=== PATIENT | male | born 1945 | race Caucasian/White ===

== ENCOUNTER → 2016-10-15 | Outpatient (CLI) | payer BC ==
[~2016-10-15] MED LIST: AMLO-110 PO; ANDG TOP; ASPCH81X PO; ATOR10TA82 PO; FOLI-29 PO
[2016-10-15 13:09] LABS: BASO % 0.5 %; BASO ABS # 0.03 K/uL (0-0.2); COMPLETE YES; HEMATOCRIT 52.3 % (42-52); IG% 0.2 %; LYMPH % 23.6 %; LYMPH ABS # 1.43 K/uL (1.2-3.4); MEAN CELL VOLUME 88.9 fL (80-100); MEAN CORPUSCULAR HEMOGLOBIN 29.6 pg (25-34); MEAN CORPUSCULAR HGB CONC 33.3 g/dl (32-36); MEAN PLATELET VOLUME 12.1 fL (7.4-10.4); MONO % 9.8 %; NEUT % 63.9 %; PLATELET COUNT 136 K/uL (130-400); RED BLOOD COUNT 5.88 M/uL (4.7-6.1); WHITE BLOOD COUNT 6.05 K/uL (4.8-10.8)
[2016-10-15 14:33] LABS: BLOOD UREA NITROGEN 13 mg/dl (7-18); BUN/CREATININE RATIO 13.1 (10-20); CALCIUM 9.1 mg/dl (8.5-10.1); CARBON DIOXIDE 24 mmol/L (21-32); CHLORIDE 110 mmol/L (98-107); CREATININE 0.99 mg/dl (0.60-1.40); GLUCOSE 97 mg/dl (70-99); POTASSIUM 4.1 mmol/L (3.5-5.1); SODIUM 142 mmol/L (136-145)
[2016-10-15 14:36] LABS: CHOLESTEROL 134 mg/dl (0-200); CHOLESTEROL/HDL RATIO 3.7; HDL CHOLESTEROL 36 mg/dl; LDL CHOLESTEROL CALCULATED 67 mg/dl; TRIGLYCERIDES 153 mg/dl (0-150); VERY LOW DENSITY LIPOPROT CALC 31 mg/dl
[2016-10-18 18:16] LABS: LIVER FIBR APOLIPOPROTEIN A-1 118 mg/dL (94-176); LIVER FIBROS ALPHA-2-MACROGLOB 175 mg/dL (106-279); LIVER FIBROSIS GGT 25 U/L (3-70); NECROINFLAMMATION ACT GRADE A0; NECROINFLAMMATION ACT SCORE 0.05
== END | disposition home or self-care (01) ==
LOC: C.LABMFLN 10:17
PROVIDERS: ATTEND Family Medicine
DX: I10 Essential (primary) hypertension (principal); E29.1 Testicular hypofunction; E78.00 Pure hypercholesterolemia, unspecified; E72.11 Homocystinuria

== ENCOUNTER → 2016-10-22 | Outpatient (CLI) | payer BC ==
--- NOTE | 2016-10-22 11:13 | DIAGNOSTIC IMAGING REPORT ---
LUMBAR SPINE 5 VIEWS HISTORY: M54.17 Lumbosacral radiculopathy at [id number] COMPARISON: None. FINDINGS: There is no fracture. No subluxation. The sacrum is intact. Mild facet degenerative changes within the lower lumbar spine. Mild disc space narrowing at L3-L4. There is also mild degenerative disc disease within the lower thoracic spine. IMPRESSION: No fracture or subluxation within the lumbar spine. Mild degenerative changes as described above. Electronically signed by: Eliot Bradley M.D. 10/22/2016 11:11 AM Dictated Date/Time: 10/22/2016 11:05 AM
== END | disposition home or self-care (01) ==
LOC: C.RAD 10:46
PROVIDERS: ATTEND Family Medicine
DX: M54.17 Radiculopathy, lumbosacral region (principal)

== ENCOUNTER → 2016-12-05 | Day surgery (SDC) | payer BC, OTHER ==
[2016-11-21 10:40] VITALS: Ht 168.9 cm; Wt 67.3 kg
[~2016-12-05] VITALS: Ht 168.9 cm; Wt 67.3 kg
[~2016-12-05] MED LIST changes: +LIDOCAINE HCL 2% 2 ML VIAL (20MG/ML) ONE; +PROPOFOL IV EMULSION 10 MG/ML 20 ML VIAL IV ONE; +SODIUM CHLORIDE 0.9% 500ML 500 ML IV ONE
[2016-12-05 12:16] VITALS: TEMP 36.4
--- NOTE | 2016-12-05 12:28 | Endo History and Physical ---
History & Physical Date of Service: Dec 05, 2016. Chief Complaint: Screening Referring Physician: Guprreet Cherry History of Present Illness 71 yo CM who presents for screening colonoscopy. Past Surgical History Hx Cardiac Surgery: No Hx Internal Defibrillator: No Hx Pacemaker: No Hx Abdominal Surgery: No Hx of Implantable Prosthesis: No Hx Post-Op Nausea and Vomiting: No Hx Cancer Surgery: No Hx Thoracic Surgery: No Hx Orthopedic: Yes (LEFT RCR, LEFT WRIST FX REPAIR) Hx Urinary Tract Surgery: No Family History None Social History Smoking Status: Former Smoker Hx Substance Use: No Hx Alcohol Use: Yes ("VERY LITTLE") Allergies Coded Allergies: NO KNOWN DRUG ALLERGIES (Verified Allergy, Unknown, ., 12/05/16) Current Medications Reported Home Medications Medications Dose Route/Sig Max Daily Dose Days Date Category Androgel (Testosterone) 5 Gm Gel 1 Pkt TOP DAILY 30 11/21/16 Reported Folgard (Folic Acid-Vit B2-Vit B6-Vit B) 1 Tab Tab 1 Tab PO QAM 11/21/16 Reported Norvasc (Amlodipine Besylate) 5 Mg Tab 5 Mg PO QAM 11/21/16 Reported Aspirin Chewable (Aspirin) 81 Mg Chew 81 Mg PO HS 11/21/16 Reported Lipitor (Atorvastatin Calcium) 10 Mg Tab 10 Mg PO HS 11/21/16 Reported Vital Signs Weight (Kilograms): 67.27 Height (Feet): 5 Height (Inches): 6.5 Date Time Temp Pulse Resp B/P (MAP) Pulse Ox O2 Delivery O2 Flow Rate FiO2 12/05/16 12:16 36.4 64 18 170/91 (117) 99 Room Air Physical Exam General Appearance: WD/WN, no apparent distress Respiratory/Chest: Auscultation: breath sounds normal Cardiovascular: Heart Auscultation: RRR Abdomen: Bowel Sounds: normal Inspection & Palpation: soft, non-distended, no tenderness, guarding & rebound Assessment and Plan Assessment: 71 yo CM who presents for screening colonoscopy. Plan: Proceed with colonoscopy.
--- NOTE | 2016-12-05 12:42 | Discharge Instructions ---
Endoscopy Patient Instructions Date / Procedure(s) Performed Dec 05, 2016. Colonoscopy Allergy Information Coded Allergies: NO KNOWN DRUG ALLERGIES (Verified Allergy, Unknown, ., 12/05/16) Discharge Date / Findings Dec 05, 2016. Internal hemorrhoids Medication Instructions Stopped Medication(s): Aspirin stopped 12/03/16 OK to resume all medications today as prescribed Medications Dose Route/Sig Max Daily Dose Days Date Category Androgel (Testosterone) 5 Gm Gel 1 Pkt TOP DAILY 30 11/21/16 Reported Folgard (Folic Acid-Vit B2-Vit B6-Vit B) 1 Tab Tab 1 Tab PO QAM 11/21/16 Reported Norvasc (Amlodipine Besylate) 5 Mg Tab 5 Mg PO QAM 11/21/16 Reported Aspirin Chewable (Aspirin) 81 Mg Chew 81 Mg PO HS 11/21/16 Reported Lipitor (Atorvastatin Calcium) 10 Mg Tab 10 Mg PO HS 11/21/16 Reported Provider Instructions Activity Restrictions - No exercising or heavy lifting for 24 hours. - Do not drink alcohol the day of the procedure. - Do not drive a car or operate machinery until the day after the procedure. - Do not make any important decisions or sign important papers in 24 hours after the procedure. Following Day: - Return to full activity which may include returning to work/school. Diet Start your diet with liquids and light foods (jello, soup, juice, toast). Then eat your usual diet if not nauseated. Treatment For Common After Affects For mild abdominal pain, bloating, or excessive gas: - Rest - Eat lightly - Lie on right side Follow-Up Information Follow-up with Gurpreet Cherry as scheduled Anesthesia Information What You Should Know You have had a procedure that required some medicine to reduce anxiety and discomfort. This treatment is called moderate sedation. After receiving the treatment, you may be sleepy, but you will be able to breathe on your own. The effects of the treatment may last for several hours. Follow these instructions along with Activity/Diet recommendations noted above: * Do NOT do anything where dizziness or clumsiness would be dangerous. * Rest quietly at home today, then you can be up and about tomorrow. * Have a responsible person stay with you the rest of today. * You may have had an I.V. today. If so, you may take the dressing off later today. Recommendations Call your doctor if: * Trouble breathing * Continuous vomiting for more than 24 hours * Temperature above 101 degrees * Severe abdominal pain or bloating * Pain not relieved by pain medicine ordered * There is increased drainage or redness from any incision * A large amount of rectal bleeding greater than 2-3 tablespoons. (If you had a polyp/s removed or have hemorrhoids, a small amount of blood - from the rectum is to be expected.) * You have any unanswered questions or concerns. IN THE EVENT OF A SERIOUS EMERGENCY, GO TO THE NEAREST EMERGENCY ROOM Your discharge instructions were prepared by provider Sukhdev Gross. Patient Instructions Signature Page John Brink Patient (or Guardian) Signature/Date: I have read and understand the instructions given to me by my caregivers. Caregiver/RN/Doctor Signature/Date: The above-named patient and/or guardian has received patient instructions on this date. + Original Patient Signature Page (only) stays with chart. Please make copy for patient.
--- NOTE | 2016-12-05 12:49 | GI REPORT ---
Procedure Date: 12/05/2016 12:20 PM Procedure: Colonoscopy Indications: Screening for colorectal malignant neoplasm Medicines: Monitored Anesthesia Care Complications: No immediate complications. Estimated Blood Loss: Estimated blood loss: none. Procedure: Pre-Anesthesia Assessment: - Prior to the procedure, a History and Physical was performed, and patient medications and allergies were reviewed. The patient's tolerance of previous anesthesia was also reviewed. The risks and benefits of the procedure and the sedation options and risks were discussed with the patient. All questions were answered, and informed consent was obtained. Prior Anticoagulants: The patient has taken aspirin, last dose was 2 days prior to procedure. ASA Grade Assessment: II - A patient with mild systemic disease. After reviewing the risks and benefits, the patient was deemed in satisfactory condition to undergo the procedure. After I obtained informed consent, the scope was passed under direct vision. Throughout the procedure, the patient's blood pressure, pulse, and oxygen saturations were monitored continuously. The Scope was introduced through the anus and advanced to the terminal ileum. The colonoscopy was performed without difficulty. The patient tolerated the procedure well. The quality of the bowel preparation was good. The terminal ileum, ileocecal valve, appendiceal orifice, and rectum were photographed. Findings: Non-bleeding internal hemorrhoids were found during retroflexion. The hemorrhoids were small. Impression: - Non-bleeding internal hemorrhoids. - No specimens collected. Recommendation: - Resume previous diet. - Continue present medications. - Return to primary care physician as previously scheduled. - No repeat colonoscopy due to age and the absence of advanced adenomas. Sukhdev Gross, DO 12/05/2016 12:48:46 PM This report has been signed electronically. Note Initiated On: 12/05/2016 12:20 PM I attest to the content of the Intraoperative Record and orders documented therein, exceptions below
[2016-12-05 13:01] VITALS: BP 133/93; PULSE 66; O2SAT 98
--- NOTE | 2016-12-05 14:21 | Anesthesiology Progress Note ---
Anesthesia Post Op Note Date & Time Dec 05, 2016 at 14:21 Vital Signs Pain Intensity: 0 Vital Signs Past 12 Hours Date Time Temp Pulse Resp B/P (MAP) Pulse Ox O2 Delivery O2 Flow Rate FiO2 12/05/16 13:01 66 18 133/93 (106) 98 Room Air 12/05/16 12:54 71 18 111/82 (92) 99 Room Air 12/05/16 12:43 73 18 126/72 (90) 99 Room Air 12/05/16 12:16 36.4 64 18 170/91 (117) 99 Room Air Notes Mental Status: alert / awake / arousable, participated in evaluation Pt Amnestic to Procedure: Yes Nausea / Vomiting: adequately controlled Pain: adequately controlled Airway Patency, RR, SpO2: stable & adequate BP & HR: stable & adequate Hydration State: stable & adequate Anesthetic Complications: no major complications apparent
== END | disposition home or self-care (01) ==
LOC: C.GI 11:34
PROVIDERS: ATTEND Internal Medicine
DX: Z12.11 Encounter for screening for malignant neoplasm of colon (principal); K64.8 Other hemorrhoids; Z87.891 Personal history of nicotine dependence; Z79.899 Other long term (current) drug therapy

== ENCOUNTER → 2016-12-10 | Outpatient (CLI) | payer BC ==
[~2016-12-10] MED LIST changes: -LIDOCAINE HCL 2% 2 ML VIAL (20MG/ML) ONE; -PROPOFOL IV EMULSION 10 MG/ML 20 ML VIAL IV ONE; -SODIUM CHLORIDE 0.9% 500ML 500 ML IV ONE
--- NOTE | 2016-12-10 10:30 | DIAGNOSTIC IMAGING REPORT ---
MRI OF THE LUMBAR SPINE WITHOUT CONTRAST CLINICAL HISTORY: Lumbosacral radiculopathy. Low back pain radiating into left lower extremity. COMPARISON STUDY: Lumbar spine radiographs October 22, 2016. TECHNIQUE: Utilizing a 1.5 Elysia magnet and dedicated coil, multiplanar, multiecho imaging of the lumbar spine was performed without IV contrast. FINDINGS: For purposes of numbering on this exam, the L5-S1 disc space is assigned to axial image 23 of 25. Slight anterolisthesis of L3 on L4. There is no marrow replacement. There is a 1.3 cm T1 and T2 hyperintense L2 vertebral body lesion. This lesion as well as several additional lesions reflect hemangiomas. There is no intracanalicular mass or fluid collection. Conus terminates at the upper L1 level. Paravertebral soft tissues are unremarkable. L1-2: The central canal and neural foramen are patent. L2-3: There is disc bulge with a tiny left paracentral disc protrusion. The central canal and neural foramen are patent. L3-4: There is minimal disc bulge with facet arthrosis and ligamentous hypertrophy. There is mild narrowing of the central canal, lateral recesses and neural foramen. L4-5: There is moderate facet arthrosis with ligamentous hypertrophy. There is mild narrowing of the central canal and lateral recesses. Neural foramen are patent. L5-S1: There is facet arthrosis. Central canal and neural foramina are patent. IMPRESSION: 1. Mild multilevel degenerative disc disease and moderate multilevel facet arthrosis of the lumbar spine. 2. Mild central canal stenosis at L3-L4 and L4-L5. 3. Mild multilevel neural foraminal stenosis. Electronically signed by: Nazario Orellana M.D. 12/10/2016 10:29 AM Dictated Date/Time: 12/10/2016 10:20 AM
== END | disposition home or self-care (01) ==
LOC: C.MRI 09:05
PROVIDERS: ATTEND Family Medicine
DX: M54.17 Radiculopathy, lumbosacral region (principal)

== ENCOUNTER → 2017-04-21 | Outpatient (CLI) | payer BC ==
[~2017-04-21] MED LIST changes: -ATOR10TA82 PO; +ATOR10TA88 PO
[2017-04-21 13:03] LABS: BASO % 0.4 %; BASO ABS # 0.03 K/uL (0-0.2); COMPLETE YES; EOS % 2.4 %; HEMATOCRIT 51.9 % (42-52); IG% 0.1 %; LYMPH ABS # 1.74 K/uL (1.2-3.4); MEAN CELL VOLUME 86.9 fL (80-100); MEAN CORPUSCULAR HEMOGLOBIN 29.6 pg (25-34); MEAN CORPUSCULAR HGB CONC 34.1 g/dl (32-36); MEAN PLATELET VOLUME 12.8 fL (7.4-10.4); MONO % 8.6 %; NEUT % 65.5 %; PLATELET COUNT 155 K/uL (130-400); RED BLOOD COUNT 5.97 M/uL (4.7-6.1); WHITE BLOOD COUNT 7.58 K/uL (4.8-10.8)
[2017-04-21 13:26] LABS: ALT/SGPT 24 U/L (12-78); AST/SGOT 22 U/L (15-37); BLOOD UREA NITROGEN 16 mg/dl (7-18); BUN/CREATININE RATIO 15.2 (10-20); CALCIUM 8.9 mg/dl (8.5-10.1); CARBON DIOXIDE 24 mmol/L (21-32); CHLORIDE 109 mmol/L (98-107); CHOLESTEROL 138 mg/dl (0-200); CREATININE 1.02 mg/dl (0.60-1.40); GLUCOSE 86 mg/dl (70-99); POTASSIUM 3.8 mmol/L (3.5-5.1); SODIUM 141 mmol/L (136-145); TRIGLYCERIDES 138 mg/dl (0-150); VERY LOW DENSITY LIPOPROT CALC 28 mg/dl
[2017-04-21 13:27] LABS: CHOLESTEROL/HDL RATIO 3.6; HDL CHOLESTEROL 38 mg/dl; LDL CHOLESTEROL CALCULATED 72 mg/dl
== END | disposition home or self-care (01) ==
LOC: C.LABMFLN 07:06
PROVIDERS: ATTEND Family Medicine
DX: I10 Essential (primary) hypertension (principal); E29.1 Testicular hypofunction; E78.00 Pure hypercholesterolemia, unspecified; Z12.5 Encounter for screening for malignant neoplasm of prostate

== ENCOUNTER → 2017-04-28 | Outpatient (CLI) | payer BC ==
[~2017-04-28] MED LIST changes: +ATOR10TA82 PO; -ATOR10TA88 PO
== END | disposition home or self-care (01) ==
LOC: C.PATHSPEC 13:43
PROVIDERS: ATTEND Family Medicine
DX: L57.0 Actinic keratosis (principal)

== ENCOUNTER → 2017-10-28 | Outpatient (CLI) | payer BC ==
[2017-10-28 13:01] LABS: BASO % 0.4 %; BASO ABS # 0.04 K/uL (0-0.2); EOS % 1.8 %; EOS ABS # 0.16 K/uL (0-0.5); HEMATOCRIT 48.8 % (42-52); HEMOGLOBIN 17.4 g/dL (14.0-18.0); IG# 0.03 K/uL (0.00-0.02); LYMPH % 21.8 %; LYMPH ABS # 1.94 K/uL (1.2-3.4); MEAN CELL VOLUME 86.5 fL (80-100); MEAN CORPUSCULAR HEMOGLOBIN 30.9 pg (25-34); MEAN CORPUSCULAR HGB CONC 35.7 g/dl (32-36); MEAN PLATELET VOLUME 11.8 fL (7.4-10.4); MONO % 6.4 %; MONO ABS # 0.57 K/uL (0.11-0.59); NEUT % 69.3 %; NEUT ABS # 6.15 K/uL (1.4-6.5); PLATELET COUNT 211 K/uL (130-400); RED CELL DISTRIBUTION WIDTH CV 13.2 % (11.5-14.5); RED CELL DISTRIBUTION WIDTH SD 41.8 fL (36.4-46.3); WHITE BLOOD COUNT 8.89 K/uL (4.8-10.8)
[2017-10-28 13:21] LABS: ALT/SGPT 33 U/L (12-78); AST/SGOT 25 U/L (15-37); BLOOD UREA NITROGEN 12 mg/dl (7-18); CARBON DIOXIDE 23 mmol/L (21-32); CHOLESTEROL 128 mg/dl (0-200); CREATININE 0.99 mg/dl (0.60-1.40); GLUCOSE 102 mg/dl (70-99); POTASSIUM 3.8 mmol/L (3.5-5.1); SODIUM 141 mmol/L (136-145)
[2017-10-28 13:22] LABS: LDL CHOLESTEROL CALCULATED 51 mg/dl
== END | disposition home or self-care (01) ==
LOC: C.LABMFLN 07:01
PROVIDERS: ATTEND Family Medicine
DX: E29.1 Testicular hypofunction (principal); E78.00 Pure hypercholesterolemia, unspecified; E72.11 Homocystinuria